=== PATIENT | male | born 1975 | race African-American/Black ===

== ENCOUNTER 2017-03-25 19:51 | Emergency (ER) | payer SELFPAY ==
--- NOTE | 2017-03-25 20:33 | ER Document Report ---
ED Medical Screen (RME) - General Chief Complaint: Rectal Pain Stated Complaint: RECTAL BLEEDING,ABDOMINAL PAIN Time Seen by Provider: 03/25/17 20:32 Notes: Patient reports 2 days of rectal bleeding and abdominal pain. He states the bleeding has progressively become worse. He states he has had no nausea or vomiting. He denies any chronic medical problems. No previous abdominal surgeries. He denies being lightheaded or dizzy. TRAVEL OUTSIDE OF THE [place] IN LAST 30 DAYS: No - Related Data Allergies/Adverse Reactions: No Known Allergies Allergy (Verified 03/25/17 20:32) Home Medications: Current Home Medications No Home Medications 03/25/17 [History] Past Medical History Renal/ Medical History: Denies: Hx Peritoneal Dialysis - Immunizations Hx Diphtheria, Pertussis, Tetanus Vaccination: Yes Physical Exam - Vital signs Vitals: Temp Pulse Resp BP Pulse Ox 98.1 F 56 L 16 109/63 98 03/25/17 20:10 03/25/17 20:10 03/25/17 20:10 03/25/17 20:10 03/25/17 20:10 Course - Vital Signs Vital signs: Temp Pulse Resp BP Pulse Ox 98.1 F 56 L 16 109/63 98 03/25/17 20:10 03/25/17 20:10 03/25/17 20:10 03/25/17 20:10 03/25/17 20:10
[2017-03-25 21:08] LABS: ABSOLUTE EOSINOPHILS # (AUTO) 0.2 10^3/uL (0.0-0.6); ABSOLUTE LYMPHOCYTES (AUTO) 1.5 10^3/uL (0.5-4.7); ABSOLUTE MONOCYTES (AUTO) 0.4 10^3/uL (0.1-1.4); ABSOLUTE NEUT (AUTO) 2.2 10^3/uL (1.7-8.2); BASOPHILS % (AUTO) 0.8 % (0-2); EOSINOPHILS % (AUTO) 4.4 % (0-6); HEMATOCRIT 43.3 % (37.9-51.0); HEMOGLOBIN 14.6 g/dL (13.5-17.0); HGB HCT DIFFERENCE 0.5; LYMPHOCYTES % (AUTO) 35.8 % (13-45); MEAN CORPUSCULAR HEMOGLOBIN 33.1 pg (27.0-33.4); MEAN CORPUSCULAR HGB CONC 33.8 g/dL (32.0-36.0); MEAN CORPUSCULAR VOLUME 98 fl (80-97); MONOCYTES % (AUTO) 8.7 % (3-13); RED BLOOD COUNT 4.43 10^6/uL (4.35-5.55); RED CELL DISTRIBUTION WIDTH 13.3 % (11.5-14.0); SEGMENTED NEUTROPHILS % (AUTO) 50.3 % (42-78); WHITE BLOOD COUNT 4.3 10^3/uL (4.0-10.5)
[2017-03-25 21:19] LABS: APPEARANCE,URINE CLEAR; BILIRUBIN,URINE NEGATIVE (NEGATIVE); GLUCOSE, URINE NEGATIVE (NEGATIVE); KETONES,URINE NEGATIVE (NEGATIVE); LEUKOCYTE ESTERASE,URINE NEGATIVE (NEGATIVE); NITRITE,URINE NEGATIVE (NEGATIVE); PROTEIN,URINE NEGATIVE (NEGATIVE); URINE SPECIFIC GRAVITY 1.027; UROBILINOGEN,URINE NEGATIVE mg/dL (<2.0)
[2017-03-25 21:27] LABS: ALANINE AMINOTRANSFERASE 38 U/L (21-72); ALBUMIN 3.7 g/dL (3.5-5.0); ALKALINE PHOSPHATASE 61 U/L (38-126); ASPARTATE AMINO TRANSFERASE 50 U/L (17-59); BILIRUBIN,DIRECT 0.2 mg/dL (0.0-0.4); BILIRUBIN,TOTAL 0.7 mg/dL (0.2-1.3); BLOOD UREA NITROGEN 15 mg/dL (7-20); CALCIUM 9.3 mg/dL (8.4-10.2); CREATININE RESULT 1.25 mg/dL (0.52-1.25); GLUCOSE 107 mg/dL (75-110); TOTAL PROTEIN 6.2 g/dL (6.3-8.2)
[2017-03-25 21:36] LABS: ANION GAP 6 (5-19); CARBON DIOXIDE 31 mmol/L (22-30); CHLORIDE 104 mmol/L (98-107); POTASSIUM 4.3 mmol/L (3.6-5.0); SODIUM 140.5 mmol/L (137-145)
--- NOTE | 2017-03-25 22:46 | ER Document Report ---
ED General - General Chief Complaint: Rectal Pain Stated Complaint: RECTAL BLEEDING,ABDOMINAL PAIN Time Seen by Provider: 03/25/17 20:32 Notes: Patient is a 41-year-old male presents with complaint of some blood with his bowel movements. Blood is red in color. This has been ongoing for the last 2 days. No social abdominal pain. No fevers. No vomiting. His history of rectal hemorrhoids which have caused similar symptoms in the past. He has no history of colon cancer. No family history of colon cancer. His never had a colonoscopy. No other complaints at this time. No dizziness or lightheadedness. TRAVEL OUTSIDE OF THE [place] IN LAST 30 DAYS: No - Related Data Allergies/Adverse Reactions: No Known Allergies Allergy (Verified 03/25/17 20:32) Past Medical History - Social History Smoking Status: Current Every Day Smoker Frequency of alcohol use: Occasional Drug Abuse: None Family History: Reviewed & Not Pertinent Patient has suicidal ideation: No Patient has homicidal ideation: No Renal/ Medical History: Denies: Hx Peritoneal Dialysis - Immunizations Hx Diphtheria, Pertussis, Tetanus Vaccination: Yes Review of Systems - Review of Systems Notes: My Normal Review Basic REVIEW OF SYSTEMS: CONSTITUTIONAL : Denies fever, chills, or sweats. Denies recent illness. RESPIRATORY: Denies cough, cold, or chest congestion. Denies shortness of breath, difficulty breathing, or wheezing. GASTROINTESTINAL: Denies abdominal pain. Denies nausea, vomiting, or diarrhea. Blood with stool. MUSCULOSKELETAL: Denies neck or back pain or joint pain or swelling. SKIN: Denies rash or skin lesions. NEUROLOGICAL: Denies altered mental status or loss of consciousness. Denies headache. Denies weakness or paralysis or loss of use of either side. Denies problems with gait or speech. Denies sensory or motor loss. ALL OTHER SYSTEMS REVIEWED AND NEGATIVE. Physical Exam - Vital signs Vitals: Temp Pulse Resp BP Pulse Ox 98.1 F 56 L 16 109/63 98 03/25/17 20:10 03/25/17 20:10 03/25/17 20:10 03/25/17 20:10 03/25/17 20:10 - Notes Notes: General Appearance: Well nourished, alert, cooperative, no acute distress, no obvious discomfort. Well-appearing. Vitals: reviewed, See vital signs table. Head: no swelling or tenderness to the head Eyes: PERRL, EOMI, Conjuctiva clear Lungs: No wheezing, No rales, No rhonci, No accessory muscle use, good air exchange bilaterally. Heart: Normal rate, Regular rythm, No murmur, no rub Abdomen: Normal BS, soft, No rigidity, No abdominal tenderness, No guarding, no rebound, no abdominal masses, no organomegaly Rectal exam: Some external hemorrhoids but no active leading from them at this time. No gross blood seen on rectal exam. Extremities: strength 5/5 in all extremities, good pulses in all extremities, no swelling or tenderness in the extremities, no edema. Skin: warm, dry, appropriate color, no rash Neuro: speech clear, oriented x 3, normal affect, responds appropriately to questions. Course - Re-evaluation Re-evalutation: 03/26/17 03:30 Patient has normal hemoglobin. He is well-appearing. He has no gross blood on rectal exam. His bleeding could be coming from hemorrhoid. There is also possible he could have a polyp. It is more likely is cancer being that she has no family history; however, I informed patient still important he follows up with a GI physician for possible colonoscopy and for reevaluation. Patient encouraged to return to ER if he has recurrent heavy bleeding, fevers, lightheadedness, difficulty breathing, vomiting, or she feels unwell. Patient agrees with plan and will be discharged home. Dictation of this chart was performed using voice recognition software; therefore, there may be some unintended grammatical errors. - Vital Signs Vital signs: Temp Pulse Resp BP Pulse Ox 98.1 F 52 L 18 105/68 98 03/25/17 20:10 03/25/17 22:58 03/25/17 22:58 03/25/17 22:58 03/25/17 22:58 - Laboratory Result Diagrams: 03/25/17 20:55 03/25/17 20:55 Laboratory results interpreted by me: 03/25/17 03/25/17 20:55 20:55 MCV 98 H Carbon Dioxide 31 H Total Protein 6.2 L Discharge - Discharge Clinical Impression: Rectal bleeding Condition: Good Disposition: HOME, SELF-CARE Additional Instructions: The exact cause if your rectal bleeding is not clear at this time. It is very important that you follow up with a [facility] for reevaluation and possible colonoscopy. I have included the name and numbers to three different gastroeneterologists. Please call them to see who can get you in for an appointment so you can get in to see them. If your symptoms persist you may need a colonoscopy. The colonscopy will help determine the etiology of the bleeding such as internal hemorrhoids, polyps or cancer. Please return to the ER if you have fevers, abdominal pain, or increase in rectal bleeding. Prescriptions: Phenylephrine HCl/Sieper Butter [Preparation H Suppository] 1 each RC BID #[id number] supp.rect Referrals: DEYSI POWERS MD [ACTIVE STAFF] - Follow up in 3-5 days MATT GARZA MD [ACTIVE STAFF] - Follow up in 3-5 days NELLIE BERNARDO MD [ACTIVE STAFF] - Follow up in 3-5 days
[2017-03-25 23:01] VITALS: BP 105/68
== END 2017-03-25 22:58 | disposition home or self-care (01) ==
LOC: ER 19:51
DX: K62.5 Hemorrhage of anus and rectum (principal); K64.4 Residual hemorrhoidal skin tags; F17.200 Nicotine dependence, unspecified, uncomplicated
CPT/HCPCS: 36415; 80053; 81001; 85025; 99283